=== PATIENT | female | born 1940 | race Caucasian/White ===

== ENCOUNTER 2018-12-28 08:55 | Inpatient (IN) | payer MEDICARE, OTHER ==
[~2018-12-28 08:55] MED LIST: Acetaminophen 325 MG Tab PO SCH; Acetaminophen/oxyCODONE 325-5 MG Tab PO PRN; Bisacodyl 5 MG Tab PO PRN; Cyclobenzaprine 10 MG Tab PO PRN; HYDROmorphone 0.5 MG/0.5 ML Syringe IVPUSH PRN; Lactated Ringers 1,000 ML IV SCH; Lidocaine 1%/Sod Bicarbonate in NS 8.4% 1 ML Syringe IDERM PRN; Magnesium Hydroxide 400 MG/5 ML Susp 30 ML Cup PO PRN; Naloxone 0.4 MG/ML SDV IVPUSH PRN; Ondansetron 4 MG/2 ML SDV IVPUSH PRN; Pregabalin 25 MG Cap PO SCH; Sennosides 8.6 MG Tab PO PRN; Sodium Chloride 0.9% 10 ML Syringe FLUSH PRN; oxyCODONE ER 10 MG TAB.ER PO SCH
[2018-12-28] MEDS ORDERED: Scopolamine 1.5 MG Transdermal Patch TRDERM SCH (09:15)
[2018-12-28] MEDS ORDERED: Lidocaine 1%/Sod Bicarbonate in NS 8.4% 1 ML Syringe IDERM PRN (09:39)
[2018-12-28] MEDS ORDERED: Midazolam 1 MG/ML 2 ML SDV ONE (09:41)
[2018-12-28] MEDS ORDERED: fentaNYL 100 MCG/2 ML SDV ONE (09:41)
[2018-12-28] MEDS ORDERED: Propofol 200 MG/20 ML SDV ONE (09:41)
[2018-12-28] MEDS ORDERED: Lidocaine 1% 4 ML ONE (09:41)
[2018-12-28] MEDS ORDERED: ceFAZolin 1 GM Vial ONE ×2 (09:42→09:55)
[2018-12-28] MEDS ORDERED: Ondansetron 4 MG/2 ML SDV ONE (09:42)
[2018-12-28] MEDS ORDERED: Dexamethasone 4 MG/ML 5 ML MDV ONE (09:42)
[2018-12-28] MEDS ORDERED: Acetaminophen 325 MG Tab PO SCH (09:45)
[2018-12-28] MEDS ORDERED: Pregabalin 25 MG Cap PO SCH (09:45)
[2018-12-28] MEDS ORDERED: Lactated Ringers 1,000 ML IV SCH (09:45)
[2018-12-28] MEDS ORDERED: oxyCODONE ER 10 MG TAB.ER PO SCH (09:45)
[2018-12-28] MEDS ORDERED: Iodine/Sodium Iodide 2% Tincture 30 ML Bottle ONE (09:55)
[2018-12-28] MEDS ORDERED: Vancomycin 1 GM SDV ONE (09:55)
[2018-12-28] MEDS ORDERED: Bupivacaine 0.25% 10 ML SDV ONE (09:56)
[2018-12-28] MEDS ORDERED: ePHEDrine/Normal Saline 25 MG/5 ML Syringe ONE (11:12)
[2018-12-28] MEDS ORDERED: fentaNYL 100 MCG/2 ML SDV IVPUSH PRN (11:20)
[2018-12-28] MEDS ORDERED: HYDROmorphone 0.5 MG/0.5 ML Syringe IVPUSH PRN (11:20)
[2018-12-28] MEDS ORDERED: Ondansetron 4 MG/2 ML SDV IVPUSH PRN (11:20)
--- NOTE | 2018-12-28 11:20 | PCM.PREANE ---
Preanesthetic Assessment - Anesthesia/Transfusion/Family Hx Anesthesia History: Prior Anesthesia Reaction Type of Anesthesia Reaction: Excessive Nausea/Vomiting Family History of Anesthesia Reaction: No Transfusion History: No Prior Transfusion(s) - Review of Systems General: No Symptoms Pulmonary: No Symptoms Cardiovascular: No Symptoms Gastrointestinal: No Symptoms Neurological: No Symptoms Other: Reports: Thyroid Problems (Hypothyroidism), Anxiety (Bipolar) - Physical Assessment NPO Status Date: 12/27/18 NPO Status Time: 21:30 Vital Signs: Last Vital Signs Temp 36.2 C 12/28/18 09:15 Pulse 61 12/28/18 09:15 Resp 16 12/28/18 09:15 BP 132/61 12/28/18 09:15 Pulse Ox 95 12/28/18 09:15 Height: 1.52 m Weight: 67.313 kg ASA Class: 2 Mental Status: Alert & Oriented x3 Airway Class: Mallampati = 2 Dentition: Reports: Normal Dentition (Chipped, crowding, none loose. ) Thyro-Mental Finger Breadths: 3 Mouth Opening Finger Breadths: 3 ROM/Head Extension: Full Lungs: Clear to Auscultation, Normal Respiratory Effort Cardiovascular: Regular Rate, Regular Rhythm - Lab Values: Laboratory Last Values MRSA (PCR) Negative 12/16/18 13:37 Blood Type A POSITIVE 12/28/18 09:40 Gel Antibody Screen Negative 12/28/18 09:40 - Allergies Allergies/Adverse Reactions: Allergies Allergy/AdvReac Type Severity Reaction Status Date / Time simvastatin AdvReac Cough Verified 12/28/18 09:59 tramadol AdvReac Nausea Verified 12/28/18 09:59 - Anesthesia Plan Pre-Op Medication Ordered: Anxiolytic - Acknowledgements Anesthesia Type Planned: Spinal Pt an Appropriate Candidate for the Planned Anesthesia: Yes Alternatives and Risks of Anesthesia Discussed w Pt/Guardian: Yes Pt/Guardian Understands and Agrees with Anesthesia Plan: Yes PreAnesthesia Questionnaire HEENT History: Reports: Glaucoma, Impaired Vision, Other (See Below) Other HEENT History: WEARS GLASSES Cardiovascular History: Reports: High Cholesterol Respiratory History: Reports: None Gastrointestinal History: Reports: GERD, Other (See Below) Other Gastrointestinal History: esophagitis Genitourinary History: Reports: None TABLEAU ANALYST History: Reports: None Musculoskeletal History: Reports: Osteoarthritis, Other (See Below) Other Musculoskeletal History: right rotator cuff tear with repair Neurological History: Reports: None Psychiatric History: Reports: Anxiety, Bipolar Endocrine/Metabolic History: Reports: Hypothyroidism, Osteopenia Hematologic History: Reports: None Immunologic History: Reports: None Oncologic (Cancer) History: Reports: None Dermatologic History: Reports: None - Past Surgical History Head Surgeries/Procedures: Reports: None HEENT Surgical History: Reports: Cataract Surgery, Tonsillectomy Cardiovascular Surgical History: Reports: None Respiratory Surgical History: Reports: None GI Surgical History: Reports: Colonoscopy, EGD Female Surgical History: Reports: None Male Surgical History: Reports: None Endocrine Surgical History: Reports: None Neurological Surgical History: Reports: None Oncologic Surgical History: Reports: None Dermatological Surgical History: Reports: None - SUBSTANCE USE Smoking Status *Q: Never Smoker Second Hand Smoke Exposure: No Recreational Drug Use History: No - HOME MEDS Home Medications: Home Meds Cholecalciferol (Vitamin D3) [Vitamin D3] 5,000 unit PO BEDTIME 12/25/18 [ History] Lutein/Zeaxanthin [Lutein-Zeaxanthin 25-5 mg Sfgl] 1 cap PO BEDTIME 12/25/18 [ History] RX: Dorzolamide/Timolol [Cosopt 2%-0.5% Ophth Soln] 1 drop EYEBOTH BID 12/25/18 [History] RX: Latanoprost 1 drop EYEBOTH BEDTIME 12/25/18 [History] RX: Levothyroxine 112 mcg PO DAILY 12/25/18 [History] RX: Multivitamin [Daily Vanessa] 1 tab PO BEDTIME 12/25/18 [History] RX: Omeprazole 40 mg PO BEDTIME 12/25/18 [History] Sertraline HCl [Zoloft] 100 mg PO BEDTIME 12/25/18 [History] Zolpidem [Ambien] 10 mg PO BEDTIME PRN 12/25/18 [History] - CURRENT (IN HOUSE) MEDS Current Meds: Current Medications Acetaminophen (Tylenol) 975 mg PO ONETIME [facility] Stop: 12/28/18 13:00 Last Admin: 12/28/18 09:50 Dose: 975 mg Hydrocodone Bitart/Acetaminophen ([place] 325-5 Mg) 1 - 2 tab PO Q4H PRN PRN Reason: Pain Aspirin (Ecotrin) 325 mg PO BID [facility] Bisacodyl (Dulcolax) 5 mg PO DAILY PRN PRN Reason: Constipation Morphine Sulfate 8 mg/Epinephrine HCl 0.3 mg/Cefuroxime Sodium 750 mg/Ketorolac Tromethamine 30 mg/Sodium Chloride 27.9 ml 0 mg .XX ONETIME ONE Stop: 12/28/18 12:01 Cyclobenzaprine HCl (Flexeril) 5 mg PO BID PRN PRN Reason: Spasms Docusate Sodium (Colace) 100 mg PO BID [facility] Famotidine (Pepcid) 20 mg PO Q12H [facility] Hydromorphone HCl (Dilaudid) 0.2 mg IVPUSH Q2H PRN PRN Reason: Pain (moderate 4-6) Cefazolin Sodium/Dextrose 2 gm (/ Premix) 50 mls @ 100 mls/hr IV Q8H [facility] Stop: 12/29/18 10:29 Lactated Ringer's (Ringers, Lactated) 1,000 mls @ 125 mls/hr IV ASDIRECTED [facility] Stop: 12/28/18 23:00 Last Admin: 12/28/18 09:43 Dose: 125 mls/hr Ketorolac Tromethamine (Toradol) 15 mg IVPUSH Q6H PRN PRN Reason: Pain Lidocaine/Sodium Bicarbonate (Buffered Lidocaine 1% In Ns 8.4%) 0.25 ml IDERM ONETIME PRN PRN Reason: Prior to IV Start Stop: 12/28/18 18:00 Last Admin: 12/28/18 09:43 Dose: 0.25 ml Magnesium Hydroxide (Milk Of Magnesia) 30 ml PO BID PRN PRN Reason: Constipation Naloxone HCl (Narcan) 0.1 mg IVPUSH Q5M PRN PRN Reason: Oversedation Ondansetron HCl (Zofran) 4 mg IVPUSH Q6H PRN PRN Reason: Nausea/Vomiting Oxycodone HCl (Oxycontin) 10 mg PO ONETIME [facility] Stop: 12/28/18 13:00 Last Admin: 12/28/18 09:50 Dose: 10 mg Oxycodone/Acetaminophen (Percocet 325-5 Mg) 1 - 2 tab PO Q4H PRN PRN Reason: Pain Pregabalin (Lyrica) 50 mg PO ONETIME [facility] Stop: 12/28/18 13:00 Last Admin: 12/28/18 09:50 Dose: 50 mg Scopolamine (Transderm-Scop) 1.5 mg TRDERM ONETIME [facility] Stop: 12/28/18 15:00 Last Admin: 12/28/18 09:40 Dose: 1.5 mg Senna (Senna) 8.6 mg PO BID PRN PRN Reason: Constipation Sodium Chloride (Saline Flush) 10 ml FLUSH ASDIRECTED PRN PRN Reason: Keep Vein Open Stop: 12/28/18 18:00 Discontinued Medications Acetaminophen (Tylenol) 975 mg PO ONETIME [facility] Stop: 12/28/18 12:00 Bupivacaine HCl (Sensorcaine-Mpf 0.25%) Confirm Administered Dose 30 ml .ROUTE .STK-MED ONE Stop: 12/28/18 09:57 Cefazolin Sodium (Ancef) Confirm Administered Dose 2 gm .ROUTE .STK-MED ONE Stop: 12/28/18 09:43 Cefazolin Sodium (Ancef) Confirm Administered Dose 2 gm .ROUTE .STK-MED ONE Stop: 12/28/18 09:56 Dexamethasone (Dexamethasone) Confirm Administered Dose 20 mg .ROUTE .STK-MED ONE Stop: 12/28/18 09:43 Ephedrine Sulfate (Ephedrine In Ns) Confirm Administered Dose 25 mg .ROUTE .STK- MED ONE Stop: 12/28/18 11:13 Fentanyl (Sublimaze) Confirm Administered Dose 100 mcg .ROUTE .STK-MED ONE Stop: 12/28/18 09:42 Lactated Ringer's (Ringers, Lactated) 1,000 mls @ 125 mls/hr IV ASDIRECTED [facility] Stop: 12/28/18 23:00 Lidocaine HCl (Xylocaine-Mpf 1%) Confirm Administered Dose 4 mls @ as directed .ROUTE .STK-MED ONE Stop: 12/28/18 09:42 Iodine (Iodine 2% Mild Tincture) Confirm Administered Dose 30 ml .ROUTE .STK- MED ONE Stop: 12/28/18 09:56 Lidocaine/Sodium Bicarbonate (Buffered Lidocaine 1% In Ns 8.4%) 0.25 ml IDERM ONETIME PRN PRN Reason: Prior to IV Start Stop: 12/28/18 18:00 Midazolam HCl (Versed 1 Mg/Ml) Confirm Administered Dose 2 mg .ROUTE .STK-MED ONE Stop: 12/28/18 09:42 Ondansetron HCl (Zofran) Confirm Administered Dose 4 mg .ROUTE .STK-MED ONE Stop: 12/28/18 09:43 Oxycodone HCl (Oxycontin) 10 mg PO ONETIME [facility] Stop: 12/28/18 12:00 Pregabalin (Lyrica) 25 mg PO TID [facility] Pregabalin (Lyrica) 50 mg PO ONETIME [facility] Stop: 12/28/18 12:00 Propofol (Diprivan 20 Ml) Confirm Administered Dose 600 mg .ROUTE .STK-MED ONE Stop: 12/28/18 09:42 Tranexamic Acid (Cyklokapron) Confirm Administered Dose 1,000 mg .ROUTE .STK- MED ONE Stop: 12/28/18 09:56 Vancomycin HCl (Vancomycin) Confirm Administered Dose 1 gm .ROUTE .STK-MED ONE Stop: 12/28/18 09:56
[2018-12-28] MEDS: Morphine 8 MG, EPINEPHrine 0.3 MG, Cefuroxime 750 MG, Ketorolac 30 MG, Sodium Chloride ... ONE ×10 (11:57→13:36)
[2018-12-28] MEDS ORDERED: Ketorolac 15 MG/ML SDV IVPUSH PRN (12:00)
[2018-12-28] MEDS ORDERED: Ketorolac 15 MG/ML SDV ONE (12:17)
[2018-12-28] MEDS ORDERED: ePHEDrine 50 MG/ML SDV IVPUSH PRN (12:35)
--- NOTE | 2018-12-28 12:35 | PCM.POSTAN ---
POST ANESTHESIA ASSESSMENT - MENTAL STATUS Mental Status: Somnolent - VITAL SIGNS Vital Signs: Last Vital Signs Temp 36.6 C 12/28/18 12:25 Pulse 60 12/28/18 12:25 Resp 8 L 12/28/18 12:25 BP 86/43 L 12/28/18 12:25 Pulse Ox 96 12/28/18 12:25 - RESPIRATORY Respiratory Status: Respiratory Rate WNL, Airway Patent, O2 Saturation Stable, Supplemental Oxygen - CARDIOVASCULAR CV Status: Pulse Rate WNL, Low Blood Pressure - GASTROINTESTINAL GI Status: No Symptoms - PAIN Pain Score: 0 - POST OP HYDRATION Hydration Status: Adequate & Stable
--- NOTE | 2018-12-28 13:09 | CR ---
Pelvis and right hip: AP view of the pelvis was obtained as well as a crosstable lateral view of the right hip. Comparison: No prior pelvis or hip exam. Right hip prosthesis is seen. Components are aligned. Joint space within the left hip is preserved. Sacroiliac joints are within normal limits. Bony structures are osteopenic. Soft tissue air is noted around the right hip compatible with recent surgery. Impression: 1. Recently placed right hip prosthesis. 2. AP pelvis and crosstable lateral right hip exam is otherwise unremarkable. Diagnostic code #2
--- NOTE | 2018-12-28 13:39 | PCM.CONS ---
<Saqib Bustillo - Last Filed: 12/29/18 10:57> H&P History of Present Illness - General Date of Service: 12/29/18 Admit Problem/Dx: Admission Diagnosis/Problem Admission Diagnosis/Problem Osteoarthritis of hip Source of Information: Patient, Old Records, Provider, RN, RN Notes Reviewed History Limitations: Reports: No Limitations - History of Present Illness Initial Comments - Free Text/Narative: Marci Chandra is a 78 yo female patient of Dr. Becerra who is post-operative day 1 of right JOSÉ ANTONIO. Hospital medicine was consulted for post-operative medical care of the following listed medical conditions. At this time she is resting comfortably in bed. Pain is controlled. She denies any chest pain, shortness of breath, palpitations, nausea, or vomiting. She carries a history of: anxiety, bipolar disorder, osteopenia, obesity, HLD, hypothyroidism, GERD. She was never a smoker. She is a full code. Her primary care provider is Wendi Wagoner PA-C. Right Hip Pain Score (Numeric/FACES): 6 - Related Data Allergies/Adverse Reactions: Allergies Allergy/AdvReac Type Severity Reaction Status Date / Time simvastatin AdvReac Cough Verified 12/28/18 15:27 tramadol AdvReac Nausea Verified 12/28/18 15:27 Home Medications: Home Meds Cholecalciferol (Vitamin D3) [Vitamin D3] 5,000 unit PO BEDTIME 12/25/18 [ History] Dorzolamide/Timolol [Cosopt 2%-0.5% Ophth Soln] 1 drop EYEBOTH BID 12/25/18 [ History] Latanoprost 1 drop EYEBOTH BEDTIME 12/25/18 [History] Levothyroxine 112 mcg PO DAILY 12/25/18 [History] Lutein/Zeaxanthin [Lutein-Zeaxanthin 25-5 mg Sfgl] 1 cap PO BEDTIME 12/25/18 [ History] Multivitamin [Daily Vanessa] 1 tab PO BEDTIME 12/25/18 [History] Omeprazole 40 mg PO BEDTIME 12/25/18 [History] Sertraline HCl [Zoloft] 100 mg PO BEDTIME 12/25/18 [History] Zolpidem [Ambien] 10 mg PO BEDTIME PRN 12/25/18 [History] Acetaminophen/HYDROcodone [[place] 325-5 MG] 1 - 2 tab PO Q4H PRN #60 tablet 12/29 [Rx] Aspirin [Ecotrin EC] 325 mg PO BID #70 tab.ec 12/29/18 [Rx] Bisacodyl [Dulcolax] 5 mg PO DAILY PRN #0 tablet 12/29/18 [Rx] Cyclobenzaprine [Flexeril] 5 mg PO BID PRN #15 tablet 12/29/18 [Rx] Docusate Sodium [Colace] 100 mg PO BID cap 12/29/18 [Rx] Famotidine [Pepcid] 20 mg PO Q12H tablet 12/29/18 [Rx] Magnesium Hydroxide [Milk of Magnesia] 30 ml PO BID PRN cup 12/29/18 [Rx] Sennosides [Senna] 8.6 mg PO BID PRN tablet 12/29/18 [Rx] Past Medical History HEENT History: Reports: Glaucoma, Impaired Vision, Other (See Below) Other HEENT History: WEARS GLASSES Cardiovascular History: Reports: High Cholesterol Respiratory History: Reports: None Gastrointestinal History: Reports: GERD, Other (See Below) Other Gastrointestinal History: esophagitis Genitourinary History: Reports: None INVENTORY CONTROL ANALYST History: Reports: None Musculoskeletal History: Reports: Osteoarthritis, Other (See Below) Other Musculoskeletal History: right rotator cuff tear with repair Neurological History: Reports: None Psychiatric History: Reports: Anxiety, Bipolar Endocrine/Metabolic History: Reports: Hypothyroidism, Osteopenia Hematologic History: Reports: None Immunologic History: Reports: None Oncologic (Cancer) History: Reports: None Dermatologic History: Reports: None - Past Surgical History Head Surgeries/Procedures: Reports: None HEENT Surgical History: Reports: Cataract Surgery, Tonsillectomy Cardiovascular Surgical History: Reports: None Respiratory Surgical History: Reports: None GI Surgical History: Reports: Colonoscopy, EGD Female Surgical History: Reports: None Male Surgical History: Reports: None Endocrine Surgical History: Reports: None Neurological Surgical History: Reports: None Oncologic Surgical History: Reports: None Dermatological Surgical History: Reports: None Social & Family History - Tobacco Use Smoking Status *Q: Never Smoker Second Hand Smoke Exposure: No - Caffeine Use Caffeine Use: Reports: Coffee, Soda - Recreational Drug Use Recreational Drug Use: No H&P Review of Systems - Review of Systems: Review Of Systems: See Below General: Reports: No Symptoms. Denies: Fever, Chills, Weakness HEENT: Reports: No Symptoms. Denies: Headaches, Sore Throat Pulmonary: Reports: No Symptoms. Denies: Shortness of Breath, Wheezing, Pleuritic Chest Pain, Cough, Sputum Cardiovascular: Reports: No Symptoms. Denies: Chest Pain, Palpitations, Dyspnea on Exertion Gastrointestinal: Reports: No Symptoms. Denies: Abdominal Pain, Constipation, Diarrhea, Nausea, Vomiting Genitourinary: Reports: No Symptoms. Denies: Pain Musculoskeletal: Reports: Leg Pain (right) Skin: Reports: No Symptoms. Denies: Cyanosis Psychiatric: Reports: No Symptoms. Denies: Confusion Neurological: Reports: No Symptoms Hematologic/Lymphatic: Reports: No Symptoms Immunologic: Reports: No Symptoms Exam - Exam Exam: See Below - Vital Signs Vital Signs: Last Vital Signs Temp 97.9 F 12/28/18 13:00 Pulse 52 L 12/28/18 13:07 Resp 15 12/28/18 13:07 BP 111/53 L 12/28/18 13:07 Pulse Ox 100 12/28/18 13:07 Weight: 67.313 kg - Exam Quality Assessment: DVT Prophylaxis General: Alert, Oriented, Cooperative. No: Mild Distress HEENT: Conjunctiva Clear, EACs Clear, EOMI, Hearing Intact, Mucosa Moist & [place] , Nares Patent, Posterior Pharynx Clear, PERRLA Neck: Supple, Trachea Midline Lungs: Clear to Auscultation, Normal Respiratory Effort Cardiovascular: Regular Rate, Regular Rhythm GI/Abdominal Exam: Normal Bowel Sounds, Soft, Non-Tender, No Distention, No Abnormal Bruit (Female) Exam: Deferred Rectal (Female) Exam: Deferred Back Exam: Normal Inspection, Full Range of Motion Extremities: No Pedal Edema, Normal Capillary Refill, Leg Pain, Limited Range of Motion, Other (Bandage in place on right leg. Bandage is dry and intact. Cooling pack in place. ) Peripheral Pulses: 2+: Radial (L), Radial (R), Dorsalis Pedis (L), Dorsalis Pedis (R) Skin: Warm, Dry, Intact Neurological: Cranial Nerves Intact (grossly ) Neuro Extensive - Mental Status: Alert, Oriented x3, Normal Mood/Affect - Patient Data Lab Results Last 24 hrs: Laboratory Results - last 24 hr 12/28/18 Range/Units 09:40 Blood Type A POSITIVE Gel Antibody Screen Negative Result Diagrams: 12/29/18 05:24 12/29/18 05:24 Consult PN Assessment/Plan POD#: 1 (1) S/P total knee arthroplasty SNOMED Code(s): 2730088301022, 686799862, 4633143973882 Code(s): Z96.659 - PRESENCE OF UNSPECIFIED ARTIFICIAL KNEE JOINT Priority: High Qualifiers: Laterality: right Qualified Code(s): Z96.651 - Presence of right artificial knee joint (2) Osteoarthritis SNOMED Code(s): 462703991 Code(s): M19.90 - UNSPECIFIED OSTEOARTHRITIS, UNSPECIFIED SITE Priority: High Qualifiers: Osteoarthritis location: knee Osteoarthritis type: primary Laterality: right Qualified Code(s): M17.11 - Unilateral primary osteoarthritis, right knee (3) Anxiety SNOMED Code(s): 54314922 Code(s): F41.9 - ANXIETY DISORDER, UNSPECIFIED Priority: Low (4) Bipolar disorder SNOMED Code(s): 67296841 Code(s): F31.9 - BIPOLAR DISORDER, UNSPECIFIED Priority: Medium Qualifiers: Active/Remission status: remission status unspecified Qualified Code(s): F31.9 - Bipolar disorder, unspecified (5) HLD (hyperlipidemia) SNOMED Code(s): 82747775 Code(s): E78.5 - HYPERLIPIDEMIA, UNSPECIFIED (6) Hypothyroid SNOMED Code(s): 19476607 Code(s): E03.9 - HYPOTHYROIDISM, UNSPECIFIED Priority: Low Qualifiers: Hypothyroidism type: unspecified Qualified Code(s): E03.9 - Hypothyroidism , unspecified (7) GERD (gastroesophageal reflux disease) SNOMED Code(s): 811710221 Code(s): K21.9 - GASTRO-ESOPHAGEAL REFLUX DISEASE WITHOUT ESOPHAGITIS Priority: Low Qualifiers: Esophagitis presence: esophagitis presence not specified Qualified Code(s) : K21.9 - Gastro-esophageal reflux disease without esophagitis Problem List Initiated/Reviewed/Updated: Yes Plan: I/P: Acute: S/P right total hip arthroplasty - post-operative day 1 -DVT prophylaxis and pain management per primary care team -PT/OT -IS/RT -Monitor oxygen saturation -Titrate oxygen as needed -Home medications reviewed -Vital signs stable -Monitor labs -Pre-operative Hgb was 13.5; Now 11.5 -Pre-operative GFR was 69; Now >60 -Pre-operative TSH was 0.235 -Pre-operative BUN was 21; Now 19 Osteoarthritis of right hip -Pain management per primary care team Chronic: anxiety bipolar disorder osteopenia obesity HLD hypothyroidism GERD Plan: CM for discharge planning GI prophylaxis Home medications as indicated Other orders as listed above Routine AM labs She is a full code. Her PCP is Wendi Wagoner PA-C From a hospitalist standpoint Marci is doing well. She has been up ambulating and working with therapies. Pain is controlled. She is off oxygen and has urinated. She has been eating well. Her labs and vital signs remained stable. She is clear for discharge pending PT/OT and primary team approval. Thank you for allowing us to participate in the care of this patient!! Requesting Provider: Dr. Becerra Date Consult Requested: 12/28/18 Patient History Reviewed: Yes Admission H&P Reviewed: Yes <Noreen Dorado - Last Filed: 12/29/18 21:21> H&P History of Present Illness - General Admit Problem/Dx: Admission Diagnosis/Problem Admission Diagnosis/Problem Osteoarthritis of hip Exam - Vital Signs Vital Signs: Last Vital Signs Temp 36.7 C 12/29/18 12:13 Pulse 57 L 12/29/18 12:13 Resp 18 12/29/18 12:13 BP 106/49 L 12/29/18 12:13 Pulse Ox 94 L 12/29/18 12:13 - Patient Data Lab Results Last 24 hrs: Laboratory Results - last 24 hr 12/29/18 12/29/18 Range/Units 05:24 05:24 WBC 11.24 H (3.98-10.04) K/mm3 RBC 3.84 L (3.98-5.22) M/mm3 Hgb 11.5 (11.2-15.7) gm/dl Hct 35.1 (34.1-44.9) % MCV 91.4 (79.4-94.8) fl MCH 29.9 (25.6-32.2) pg MCHC 32.8 (32.2-35.5) g/dl RDW Std Deviation 43.4 (36.4-46.3) fL Plt Count 222 (182-369) K/mm3 MPV 10.0 (9.4-12.3) fl Sodium 141 (136-145) mEq/L Potassium 4.5 (3.5-5.1) mEq/L Chloride 105 (98-107) mEq/L Carbon Dioxide 27 (21-32) mEq/L Anion Gap 13.5 (5-15) BUN 19 H (7-18) mg/dL Creatinine 0.9 (0.55-1.02) mg/dL Est Cr Clr Drug Dosing 36.41 mL/min Estimated GFR (MDRD) > 60 (>60) mL/min BUN/Creatinine Ratio 21.1 H (14-18) Glucose 124 H (83-115) mg/dL Calcium 9.0 (8.5-10.1) mg/dL Total Bilirubin 0.4 (0.2-1.0) mg/dL AST 55 H (15-37) U/L ALT 30 (14-59) U/L Alkaline Phosphatase 74 (46-116) U/L Total Protein 6.9 (6.4-8.2) g/dl Albumin 3.2 L (3.4-5.0) g/dl Globulin 3.7 gm/dL Albumin/Globulin Ratio 0.9 L (1-2) Result Diagrams: 12/29/18 05:24 12/29/18 05:24 Consult PN Assessment/Plan Plan: Case was discussed with Saqib Bustillo and agree with his assessment and plan set forth for this patient.
[2018-12-28] MEDS: ceFAZolin 2 GM in Premix Bag 1 BAG IV SCH (17:26)
[2018-12-28] MEDS: Acetaminophen/HYDROcodone 325-5 MG Tab PO PRN (18:21)
[2018-12-28] MEDS: Famotidine 20 MG Tab PO SCH (20:09)
[2018-12-28] MEDS: Docusate Sodium 100 MG Cap PO SCH (20:09)
[2018-12-28] MEDS: TIMOLOL EYEBOTH SCH (20:09)
[2018-12-28] MEDS: DORZOLAMIDE EYEBOTH SCH (20:09)
[2018-12-28] MEDS ORDERED: Sertraline 50 MG Tab PO SCH (21:00)
[2018-12-28] MEDS ORDERED: Cholecalciferol (Vitamin D3) 5,000 UNIT Tab PO SCH (21:00)
[2018-12-28] MEDS ORDERED: LATANOPROST 0.005% EYEBOTH SCH (21:00)
[2018-12-28] MEDS ORDERED: Multivitamins with Minerals/Folic Acid/Lutein/Zeaxanth Tab PO SCH (21:00)
[2018-12-28] MEDS ORDERED: Multivitamins,Therapeutic Tab PO SCH (21:00)
[2018-12-29] MEDS: Acetaminophen/HYDROcodone 325-5 MG Tab PO PRN ×3 (00:03→13:44)
[2018-12-29] MEDS: ceFAZolin 2 GM in Premix Bag 1 BAG IV SCH ×2 (02:58→10:05)
[2018-12-29] MEDS ORDERED: Levothyroxine 112 MCG Tab PO SCH (06:00)
--- NOTE | 2018-12-29 07:34 | PCM.SURGPN ---
- General Info Date of Service: 12/29/18 POD#: 1 Functional Status: Reports: Pain Controlled, Tolerating Diet, Ambulating, Urinating, Incentive Spirometry, Other (The pt states she is doing well. Nursing reports pt has been doing well.) - Patient Data Vitals - Most Recent: Last Vital Signs Temp 97.7 F 12/29/18 03:01 Pulse 54 L 12/29/18 03:01 Resp 20 12/29/18 03:01 BP 108/49 L 12/29/18 03:01 Pulse Ox 90 L 12/29/18 03:15 Weight - Most Recent: 148 lb 6.4 oz I&O - Last 24 Hours: Intake & Output 12/28/18 12/29/18 12/29/18 22:59 06:59 14:59 Intake Total 960 450 Output Total 550 Balance 960 -100 Lab Results Last 24 Hrs: Laboratory Results - last 24 hr 12/28/18 12/29/18 12/29/18 Range/Units 09:40 05:24 05:24 WBC 11.24 H (3.98-10.04) K/mm3 RBC 3.84 L (3.98-5.22) M/mm3 Hgb 11.5 (11.2-15.7) gm/dl Hct 35.1 (34.1-44.9) % MCV 91.4 (79.4-94.8) fl MCH 29.9 (25.6-32.2) pg MCHC 32.8 (32.2-35.5) g/dl RDW Std Deviation 43.4 (36.4-46.3) fL Plt Count 222 (182-369) K/mm3 MPV 10.0 (9.4-12.3) fl Sodium 141 (136-145) mEq/L Potassium 4.5 (3.5-5.1) mEq/L Chloride 105 (98-107) mEq/L Carbon Dioxide 27 (21-32) mEq/L Anion Gap 13.5 (5-15) BUN 19 H (7-18) mg/dL Creatinine 0.9 (0.55-1.02) mg/dL Est Cr Clr Drug Dosing 36.41 mL/min Estimated GFR (MDRD) > 60 (>60) mL/min BUN/Creatinine Ratio 21.1 H (14-18) Glucose 124 H (83-115) mg/dL Calcium 9.0 (8.5-10.1) mg/dL Total Bilirubin 0.4 (0.2-1.0) mg/dL AST 55 H (15-37) U/L ALT 30 (14-59) U/L Alkaline Phosphatase 74 (46-116) U/L Total Protein 6.9 (6.4-8.2) g/dl Albumin 3.2 L (3.4-5.0) g/dl Globulin 3.7 gm/dL Albumin/Globulin Ratio 0.9 L (1-2) Blood Type A POSITIVE Gel Antibody Screen Negative Med Orders - Current: Current Medications Hydrocodone Bitart/Acetaminophen (Curlew 325-5 Mg) 1 - 2 tab PO Q4H PRN PRN Reason: Pain Last Admin: 12/29/18 05:56 Dose: 2 tab Aspirin (Ecotrin) 325 mg PO BID [facility] Bisacodyl (Dulcolax) 5 mg PO DAILY PRN PRN Reason: Constipation Cholecalciferol (Vitamin D3) 5,000 unit PO BEDTIME [facility] Last Admin: 12/28/18 20:09 Dose: 5,000 unit Cyclobenzaprine HCl (Flexeril) 5 mg PO BID PRN PRN Reason: Spasms Last Admin: 12/28/18 22:11 Dose: 5 mg Docusate Sodium (Colace) 100 mg PO BID [facility] Last Admin: 12/28/18 20:09 Dose: 100 mg Famotidine (Pepcid) 20 mg PO Q12H [facility] Last Admin: 12/28/18 20:09 Dose: 20 mg Hydromorphone HCl (Dilaudid) 0.2 mg IVPUSH Q2H PRN PRN Reason: Pain (moderate 4-6) Last Admin: 12/28/18 22:01 Dose: 0.2 mg Cefazolin Sodium/Dextrose 2 gm (/ Premix) 50 mls @ 100 mls/hr IV Q8H [facility] Stop: 12/29/18 10:29 Last Admin: 12/29/18 02:58 Dose: 100 mls/hr Ketorolac Tromethamine (Toradol) 15 mg IVPUSH Q6H PRN PRN Reason: Pain Last Admin: 12/28/18 18:21 Dose: 15 mg Levothyroxine Sodium (Levothyroxine) 112 mcg PO ACBREAKFAST [facility] Last Admin: 12/29/18 05:56 Dose: 112 mcg Magnesium Hydroxide (Milk Of Magnesia) 30 ml PO BID PRN PRN Reason: Constipation Miscellaneous Information (Remove Patch) 1 ea TRDERM ONETIME ONE Stop: 12/31/18 10:01 Multivitamins (Thera) 1 each PO BEDTIME [facility] Last Admin: 12/28/18 20:09 Dose: 1 each Naloxone HCl (Narcan) 0.1 mg IVPUSH Q5M PRN PRN Reason: Oversedation Ondansetron HCl (Zofran) 4 mg IVPUSH Q6H PRN PRN Reason: Nausea/Vomiting Dorzolamide/Timolol 2%-0.5% Ophth Soln * *Ptom 0 each EYEBOTH BID [facility] Last Admin: 12/28/18 20:09 Dose: 1 each Latanoprost 0.005% * (*Ptom) 0 each EYEBOTH BEDTIME [facility] Last Admin: 12/28/18 20:10 Dose: 1 each Senna (Senna) 8.6 mg PO BID PRN PRN Reason: Constipation Sertraline HCl (Zoloft) 100 mg PO BEDTIME [facility] Last Admin: 12/28/18 20:09 Dose: 100 mg Vit A/Vit C/Vit E/Selen/Cu/Zn/Lutei (Icaps Mv) 1 tab PO BEDTIME [facility] Last Admin: 12/28/18 20:09 Dose: 1 tab Discontinued Medications Acetaminophen (Tylenol) 975 mg PO ONETIME [facility] Stop: 12/28/18 12:00 Acetaminophen (Tylenol) 975 mg PO ONETIME [facility] Stop: 12/28/18 13:00 Last Admin: 12/28/18 09:50 Dose: 975 mg Bupivacaine HCl (Sensorcaine-Mpf 0.25%) Confirm Administered Dose 30 ml .ROUTE .STK-MED ONE Stop: 12/28/18 09:57 Last Admin: 12/28/18 11:56 Dose: 30 ml Cefazolin Sodium (Ancef) Confirm Administered Dose 2 gm .ROUTE .STK-MED ONE Stop: 12/28/18 09:43 Last Admin: 12/28/18 11:52 Dose: 2 gm Cefazolin Sodium (Ancef) Confirm Administered Dose 2 gm .ROUTE .STK-MED ONE Stop: 12/28/18 09:56 Morphine Sulfate 8 mg/Epinephrine HCl 0.3 mg/Cefuroxime Sodium 750 mg/Ketorolac Tromethamine 30 mg/Sodium Chloride 27.9 ml 0 mg .XX ONETIME ONE Stop: 12/28/18 12:01 Last Admin: 12/28/18 13:36 Dose: Not Given Dexamethasone (Dexamethasone) Confirm Administered Dose 20 mg .ROUTE .STK-MED ONE Stop: 12/28/18 09:43 Ephedrine Sulfate (Ephedrine In Ns) Confirm Administered Dose 25 mg .ROUTE .STK- MED ONE Stop: 12/28/18 11:13 Ephedrine Sulfate (Ephedrine Sulfate) 5 mg IVPUSH ASDIRECTED PRN PRN Reason: Hypotension Stop: 12/28/18 15:00 Fentanyl (Sublimaze) Confirm Administered Dose 100 mcg .ROUTE .STK-MED ONE Stop: 12/28/18 09:42 Fentanyl (Sublimaze) 50 mcg IVPUSH Q5M PRN PRN Reason: Pain Stop: 12/28/18 13:00 Hydromorphone HCl (Dilaudid) 0.5 mg IVPUSH Q10M PRN PRN Reason: Pain (severe 7-10) Stop: 12/28/18 13:00 Lactated Ringer's (Ringers, Lactated) 1,000 mls @ 125 mls/hr IV ASDIRECTED [facility] Stop: 12/28/18 23:00 Lactated Ringer's (Ringers, Lactated) 1,000 mls @ 125 mls/hr IV ASDIRECTED [facility] Stop: 12/28/18 23:00 Last Admin: 12/28/18 09:43 Dose: 125 mls/hr Lidocaine HCl (Xylocaine-Mpf 1%) Confirm Administered Dose 4 mls @ as directed .ROUTE .STK-MED ONE Stop: 12/28/18 09:42 Iodine (Iodine 2% Mild Tincture) Confirm Administered Dose 30 ml .ROUTE .STK- MED ONE Stop: 12/28/18 09:56 Last Admin: 12/28/18 11:50 Dose: 18 ml Ketorolac Tromethamine (Toradol) Confirm Administered Dose 15 mg .ROUTE .STK- MED ONE Stop: 12/28/18 12:18 Lidocaine/Sodium Bicarbonate (Buffered Lidocaine 1% In Ns 8.4%) 0.25 ml IDERM ONETIME PRN PRN Reason: Prior to IV Start Stop: 12/28/18 18:00 Lidocaine/Sodium Bicarbonate (Buffered Lidocaine 1% In Ns 8.4%) 0.25 ml IDERM ONETIME PRN PRN Reason: Prior to IV Start Stop: 12/28/18 18:00 Last Admin: 12/28/18 09:43 Dose: 0.25 ml Midazolam HCl (Versed 1 Mg/Ml) Confirm Administered Dose 2 mg .ROUTE .STK-MED ONE Stop: 12/28/18 09:42 Ondansetron HCl (Zofran) Confirm Administered Dose 4 mg .ROUTE .STK-MED ONE Stop: 12/28/18 09:43 Ondansetron HCl (Zofran) 4 mg IVPUSH ONETIME PRN PRN Reason: Nausea/Vomiting Stop: 12/28/18 16:00 Oxycodone HCl (Oxycontin) 10 mg PO ONETIME [facility] Stop: 12/28/18 12:00 Oxycodone HCl (Oxycontin) 10 mg PO ONETIME [facility] Stop: 12/28/18 13:00 Last Admin: 12/28/18 09:50 Dose: 10 mg Oxycodone/Acetaminophen (Percocet 325-5 Mg) 1 - 2 tab PO Q4H PRN PRN Reason: Pain Pregabalin (Lyrica) 25 mg PO TID [facility] Pregabalin (Lyrica) 50 mg PO ONETIME [facility] Stop: 12/28/18 12:00 Pregabalin (Lyrica) 50 mg PO ONETIME [facility] Stop: 12/28/18 13:00 Last Admin: 12/28/18 09:50 Dose: 50 mg Propofol (Diprivan 20 Ml) Confirm Administered Dose 600 mg .ROUTE .STK-MED ONE Stop: 12/28/18 09:42 Scopolamine (Transderm-Scop) 1.5 mg TRDERM ONETIME [facility] Stop: 12/28/18 15:00 Last Admin: 12/28/18 09:40 Dose: 1.5 mg Sodium Chloride (Saline Flush) 10 ml FLUSH ASDIRECTED PRN PRN Reason: Keep Vein Open Stop: 12/28/18 18:00 Tranexamic Acid (Cyklokapron) Confirm Administered Dose 1,000 mg .ROUTE .STK- MED ONE Stop: 12/28/18 09:56 Last Admin: 12/28/18 11:58 Dose: 1,000 mg Vancomycin HCl (Vancomycin) Confirm Administered Dose 1 gm .ROUTE .STK-MED ONE Stop: 12/28/18 09:56 Last Admin: 12/28/18 11:57 Dose: 1 gm - Exam Wound/Incisions: Dressing Dry and Intact General: Alert, Cooperative, No Acute Distress Lungs: Normal Respiratory Effort Extremities: Other (NVS intact for BLE. Tio's negative for BLE. Right thigh soft.) - Problem List Review Problem List Initiated/Reviewed/Updated: Yes - My Orders Last 24 Hours: Active Orders 24 hr Category Date Time Status Patient Status [ADT] Routine ADT 12/28/18 06:34 Active Ambulate [RC] TIDMEALS Care 12/28/18 06:34 Active May Shower [RC] DAILY Care 12/28/18 06:34 Active Notify Provider Consults [RC] ASDIRECTED Care 12/28/18 06:37 Active Oxygen Therapy [RC] PRN Care 12/28/18 06:34 Active Ready for Discharge [RC] PER UNIT ROUTINE Care 12/29/18 07:32 Ordered Up to Chair [RC] TIDMEALS Care 12/28/18 06:34 Active Vital Signs [RC] Q4HR Care 12/28/18 06:34 Active Consult to Physician [CONS] Routine Cons 12/28/18 06:34 Ordered Regular Diet [DIET] Diet 12/28/18 Lunch Active PATIENT RETYPE [BBK] Routine Lab 12/28/18 10:48 Ordered Acetaminophen/HYDROcodone [Curlew 325-5 MG] Med 12/28/18 06:34 Active 1 - 2 tab PO Q4H PRN Aspirin [Ecotrin] Med 12/29/18 09:00 Active 325 mg PO BID Bisacodyl [Dulcolax] Med 12/28/18 06:34 Active 5 mg PO DAILY PRN Cholecalciferol (Vitamin D3) [Vitamin D3] Med 12/28/18 21:00 Active 5,000 unit PO BEDTIME Docusate Sodium [Colace] Med 12/28/18 21:00 Active 100 mg PO BID Famotidine [Pepcid] Med 12/28/18 21:00 Active 20 mg PO Q12H HYDROmorphone [Dilaudid] Med 12/28/18 06:34 Active 0.2 mg IVPUSH Q2H PRN Ketorolac [Toradol] Med 12/28/18 12:00 Active 15 mg IVPUSH Q6H PRN Levothyroxine Med 12/29/18 06:00 Active 112 mcg PO ACBREAKFAST Magnesium Hydroxide [Milk of Magnesia] Med 12/28/18 06:34 Active 30 ml PO BID PRN Multivitamins,Therapeutic [Thera] Med 12/28/18 21:00 Active 1 each PO BEDTIME Multivitamins/Min/FA/Lut/Zeax [ICaps MV] Med 12/28/18 21:00 Active 1 tab PO BEDTIME Naloxone [Narcan] Med 12/28/18 06:34 Active 0.1 mg IVPUSH Q5M PRN Ondansetron [Zofran] Med 12/28/18 06:34 Active 4 mg IVPUSH Q6H PRN Patient's Own Medication [Ptom] Med 12/28/18 21:00 Active 0 each EYEBOTH BEDTIME Patient's Own Medication [Ptom] Med 12/28/18 21:00 Active 0 each EYEBOTH BID Remove Patch Med 12/31/18 10:00 Once 1 ea TRDERM ONETIME ONE Sennosides [Senna] Med 12/28/18 06:34 Active 8.6 mg PO BID PRN Sertraline [Zoloft] Med 12/28/18 21:00 Active 100 mg PO BEDTIME ceFAZolin [Ancef] 2 gm Med 12/28/18 18:00 Active Premix Bag 1 bag IV Q8H Antiembolic Hose [OM.PC] Per Unit Routine Oth 12/28/18 06:35 Ordered Ice Therapy [OM.PC] Per Unit Routine Oth 12/28/18 06:34 Ordered Resuscitation Status Routine Resus Stat 12/28/18 06:34 Ordered Medication Orders Hydrocodone Bitart/Acetaminophen (Curlew 325-5 Mg) 1 - 2 tab PO Q4H PRN PRN Reason: Pain Last Admin: 12/29/18 05:56 Dose: 2 tab Admin: 12/29/18 00:03 Dose: 2 tab Admin: 12/28/18 18:21 Dose: 1 tab Aspirin (Ecotrin) 325 mg PO BID [facility] Bisacodyl (Dulcolax) 5 mg PO DAILY PRN PRN Reason: Constipation Cholecalciferol (Vitamin D3) 5,000 unit PO BEDTIME [facility] Last Admin: 12/28/18 20:09 Dose: 5,000 unit Cyclobenzaprine HCl (Flexeril) 5 mg PO BID PRN PRN Reason: Spasms Last Admin: 12/28/18 22:11 Dose: 5 mg Docusate Sodium (Colace) 100 mg PO BID [facility] Last Admin: 12/28/18 20:09 Dose: 100 mg Famotidine (Pepcid) 20 mg PO Q12H [facility] Last Admin: 12/28/18 20:09 Dose: 20 mg Hydromorphone HCl (Dilaudid) 0.2 mg IVPUSH Q2H PRN PRN Reason: Pain (moderate 4-6) Last Admin: 12/28/18 22:01 Dose: 0.2 mg Cefazolin Sodium/Dextrose 2 gm (/ Premix) 50 mls @ 100 mls/hr IV Q8H [facility] Stop: 12/29/18 10:29 Last Admin: 12/29/18 02:58 Dose: 100 mls/hr Infusion: 12/28/18 17:56 Dose: 100 mls/hr Admin: 12/28/18 17:26 Dose: 100 mls/hr Ketorolac Tromethamine (Toradol) 15 mg IVPUSH Q6H PRN PRN Reason: Pain Last Admin: 12/28/18 18:21 Dose: 15 mg Levothyroxine Sodium (Levothyroxine) 112 mcg PO ACBREAKFAST [facility] Last Admin: 12/29/18 05:56 Dose: 112 mcg Magnesium Hydroxide (Milk Of Magnesia) 30 ml PO BID PRN PRN Reason: Constipation Miscellaneous Information (Remove Patch) 1 ea TRDERM ONETIME ONE Stop: 12/31/18 10:01 Multivitamins (Thera) 1 each PO BEDTIME [facility] Last Admin: 12/28/18 20:09 Dose: 1 each Naloxone HCl (Narcan) 0.1 mg IVPUSH Q5M PRN PRN Reason: Oversedation Ondansetron HCl (Zofran) 4 mg IVPUSH Q6H PRN PRN Reason: Nausea/Vomiting Dorzolamide/Timolol 2%-0.5% Ophth Soln * *Ptom 0 each EYEBOTH BID [facility] Last Admin: 12/28/18 20:09 Dose: 1 each Latanoprost 0.005% * (*Ptom) 0 each EYEBOTH BEDTIME [facility] Last Admin: 12/28/18 20:10 Dose: 1 each Senna (Senna) 8.6 mg PO BID PRN PRN Reason: Constipation Sertraline HCl (Zoloft) 100 mg PO BEDTIME [facility] Last Admin: 12/28/18 20:09 Dose: 100 mg Vit A/Vit C/Vit E/Selen/Cu/Zn/Lutei (Icaps Mv) 1 tab PO BEDTIME [facility] Last Admin: 12/28/18 20:09 Dose: 1 tab - Assessment Assessment (Free Text/Narrative):: POD#1 - s/p right JOSÉ ANTONIO - Plan Plan (Free Text/Narrative):: 1. Hgb 11.5. 2. 325mg ASA PO BID, frequent mobility, TEDs. 3. Discharge to home today. 4. Outpatient therapy. The pt's case was discussed with Dr. Becerra.
[2018-12-29] MEDS ORDERED: Aspirin 325 MG Tab.EC PO SCH (09:00)
[2018-12-29] MEDS: Docusate Sodium 100 MG Cap PO SCH (10:06)
[2018-12-29] MEDS: DORZOLAMIDE EYEBOTH SCH (10:06)
[2018-12-29] MEDS: TIMOLOL EYEBOTH SCH (10:06)
[2018-12-29] MEDS: Famotidine 20 MG Tab PO SCH (10:47)
--- NOTE | 2018-12-29 11:40 | PCM48HPAN ---
Post Anesthesia Note - EVALUATION WITHIN 48HRS OF ANESTHETIC Vital Signs in Normal Range: Yes Patient Participated in Evaluation: Yes Respiratory Function Stable: Yes Airway Patent: Yes Cardiovascular Function Stable: Yes Hydration Status Stable: Yes Pain Control Satisfactory: Yes Nausea and Vomiting Control Satisfactory: Yes Mental Status Recovered: Yes Vital Signs: Last Vital Signs Temp 36.8 C 12/29/18 08:33 Pulse 58 L 12/29/18 08:33 Resp 18 12/29/18 08:33 BP 130/57 L 12/29/18 08:33 Pulse Ox 96 12/29/18 08:33
[2018-12-29] MEDS ORDERED: Famotidine 20 MG Tab PO SCH (21:00)
--- NOTE | 2018-12-31 15:56 | PCM.DCSUM1 ---
Discharge Summary - Hospital Course Brief History: Marci is a 78 yo female who underwent right JOSÉ ANTONIO with Dr. Becerra on 12-28-2018. The procedure was completed under spinal anesthesia with sedation. The pt tolerated the procedure well and was admitted to the Medical-Surgical Unit. Medical management was provided by the Hospitalist service. The pt's Hospital course was uneventful. The pt's Hgb on POD#1 was 11.5. On POD#1, 325mg ASA BID was initiated for VTE prophylaxis. SCDs and TEDs were also ordered. A Mepilex dressing was placed at the incision site at the time of surgery and remained clean and dry. The pt participated in P.T. and O.T. and progressed well. She followed the JOSÉ ANTONIO precautions. The pt was allowed to WBAT. On POD#1, the pt was deemed appropriate to discharge to home with her family. - Discharge Data Discharge Date: 12/29/18 Discharge Disposition: Home, Self-Care 01 Condition: Good - Patient Summary/Data Consults: Consultations 12/28/18 06:31 PT Evaluation and Treatment [CONS] Routine 12/28/18 06:32 OT Evaluation and Treatment [CONS] Routine 12/28/18 06:34 Consult to Physician [CONS] Routine - Patient Instructions Diet: Usual Diet as Tolerated Activity: Apply Ice, As Tolerated, Elevate Extremity, Full Weight Bearing Activity, Other: Follow the total hip precautions. Driving: Do Not Drive Showering/Bathing: May Shower Wound/Incision Care: Keep Operative Site/Wound Site Clean and Dry, Do NOT Change Dressing Notify Provider of: Fever, Increased Pain, Swelling and Redness, Drainage, Nausea and/or Vomiting Other/Special Instructions: Please get up and moving around EVERY HOUR while awake. This helps to prevent blood clots. Please use your walker and have help with mobility as needed. Take a short walk in your home every hour while awake. Please take 325mg Aspirin TWICE daily. The aspirin is being used for blood clot prevention and not for pain management so please do not miss a dose of the medication. You could use a medication like Pepcid or Tagamet and a medication like Prilosec or Nexium to protect your stomach while you are using the aspirin. At home, please complete the exercises that you learned during the Hospital stay. Schedule for physical therapy. Follow the total hip precautions. Use the pain medication as needed. The medication may cause drowsiness and constipation. Contact your primary care provider for instructions if you are constipated. You may use a stool softener like docusate sodium or Colace 100mg twice daily and/or a laxative like Miralax daily for constipation. Increase your water and fiber intake while you are using the pain medication. Discontinue use of the pain medication as soon as able. Please do not use other medications that may cause drowsiness (other pain medications, anxiety pills, cold medications, sleeping pills, etc) while using the prescription pain medication. Do not use alcohol while using the pain medication. You may use acetaminophen or Tylenol for pain management, however, please ensure you are not using over 4000 mg or 4 grams of acetaminophen per day from all sources. Your pain medication has 325mg of acetaminophen per tablet. At this time, please do not use ibuprofen (Motrin, Advil) or naproxen (Aleve) for pain management as you are using the aspirin. When the aspirin course is completed in 5 weeks, you could use ibuprofen or naproxen for pain management (if this is allowed by your primary care provider) . Wear the KENDALL hose during the day and you may remove these at night. Elevate the limb to decrease swelling. Place ice to the area often. Place a towel between your skin and the blue pad. Use the incentive spirometer often. Take deep breaths throughout the day. Please keep the dressing in place until follow -up. Notify the Clinic if the dressing becomes saturated. Increase your protein intake while you are healing. Call the Clinic with questions or concerns - [phone]. - Discharge Plan *PRESCRIPTION DRUG MONITORING PROGRAM REVIEWED*: No *COPY OF PRESCRIPTION DRUG MONITORING REPORT IN PATIENT KERRY: No Prescriptions/Med Rec: Acetaminophen/HYDROcodone [[place] 325-5 MG] 1 - 2 tab PO Q4H PRN #60 tablet PRN Reason: Pain Aspirin [Ecotrin EC] 325 mg PO BID #70 tab.ec Cyclobenzaprine [Flexeril] 5 mg PO BID PRN #15 tablet PRN Reason: Spasms Home Medications: Home Meds Cholecalciferol (Vitamin D3) [Vitamin D3] 5,000 unit PO BEDTIME 12/25/18 [ History] Dorzolamide/Timolol [Cosopt 2%-0.5% Ophth Soln] 1 drop EYEBOTH BID 12/25/18 [ History] Latanoprost 1 drop EYEBOTH BEDTIME 12/25/18 [History] Levothyroxine 112 mcg PO DAILY 12/25/18 [History] Lutein/Zeaxanthin [Lutein-Zeaxanthin 25-5 mg Sfgl] 1 cap PO BEDTIME 12/25/18 [ History] Multivitamin [Daily Vanessa] 1 tab PO BEDTIME 12/25/18 [History] Omeprazole 40 mg PO BEDTIME 12/25/18 [History] Sertraline HCl [Zoloft] 100 mg PO BEDTIME 12/25/18 [History] Zolpidem [Ambien] 10 mg PO BEDTIME PRN 12/25/18 [History] Acetaminophen/HYDROcodone [[place] 325-5 MG] 1 - 2 tab PO Q4H PRN #60 tablet 12/29 [Rx] Aspirin [Ecotrin EC] 325 mg PO BID #70 tab.ec 12/29/18 [Rx] Bisacodyl [Dulcolax] 5 mg PO DAILY PRN #0 tablet 12/29/18 [Rx] Cyclobenzaprine [Flexeril] 5 mg PO BID PRN #15 tablet 12/29/18 [Rx] Docusate Sodium [Colace] 100 mg PO BID cap 12/29/18 [Rx] Famotidine [Pepcid] 20 mg PO Q12H tablet 12/29/18 [Rx] Magnesium Hydroxide [Milk of Magnesia] 30 ml PO BID PRN cup 12/29/18 [Rx] Sennosides [Senna] 8.6 mg PO BID PRN tablet 12/29/18 [Rx] Referrals: Shereen Hicks PA-C [Physician Drop Clipper] - (You have 3 follow ups scheduled as follows: 01/05/19 at 1:05pm with Dr. Becerra. 01/12/19 at 1:30pm with Shereen Hicks. 01/12/19 at 1:30pm with Shereen Hicks.) - Discharge Summary/Plan Comment DC Time >30 min.: No - Patient Data Vitals - Most Recent: Last Vital Signs Temp 98.1 F 12/29/18 12:13 Pulse 57 L 12/29/18 12:13 Resp 18 12/29/18 12:13 BP 106/49 L 12/29/18 12:13 Pulse Ox 94 L 12/29/18 12:13 Weight - Most Recent: 148 lb 6.4 oz Med Orders - Current: Current Medications Discontinued Medications Acetaminophen (Tylenol) 975 mg PO ONETIME [facility] Stop: 12/28/18 12:00 Acetaminophen (Tylenol) 975 mg PO ONETIME [facility] Stop: 12/28/18 13:00 Last Admin: 12/28/18 09:50 Dose: 975 mg Hydrocodone Bitart/Acetaminophen ([place] 325-5 Mg) 1 - 2 tab PO Q4H PRN PRN Reason: Pain Last Admin: 12/29/18 13:44 Dose: 2 tab Aspirin (Ecotrin) 325 mg PO BID [facility] Last Admin: 12/29/18 10:06 Dose: 325 mg Bisacodyl (Dulcolax) 5 mg PO DAILY PRN PRN Reason: Constipation Bupivacaine HCl (Sensorcaine-Mpf 0.25%) Confirm Administered Dose 30 ml .ROUTE .STK-MED ONE Stop: 12/28/18 09:57 Last Admin: 12/28/18 11:56 Dose: 30 ml Cefazolin Sodium (Ancef) Confirm Administered Dose 2 gm .ROUTE .STK-MED ONE Stop: 12/28/18 09:43 Last Admin: 12/28/18 11:52 Dose: 2 gm Cefazolin Sodium (Ancef) Confirm Administered Dose 2 gm .ROUTE .STK-MED ONE Stop: 12/28/18 09:56 Cholecalciferol (Vitamin D3) 5,000 unit PO BEDTIME [facility] Last Admin: 12/28/18 20:09 Dose: 5,000 unit Morphine Sulfate 8 mg/Epinephrine HCl 0.3 mg/Cefuroxime Sodium 750 mg/Ketorolac Tromethamine 30 mg/Sodium Chloride 27.9 ml 0 mg .XX ONETIME ONE Stop: 12/28/18 12:01 Last Admin: 12/28/18 13:36 Dose: Not Given Cyclobenzaprine HCl (Flexeril) 5 mg PO BID PRN PRN Reason: Spasms Last Admin: 12/28/18 22:11 Dose: 5 mg Dexamethasone (Dexamethasone) Confirm Administered Dose 20 mg .ROUTE .STK-MED ONE Stop: 12/28/18 09:43 Docusate Sodium (Colace) 100 mg PO BID [facility] Last Admin: 12/29/18 10:06 Dose: 100 mg Ephedrine Sulfate (Ephedrine In Ns) Confirm Administered Dose 25 mg .ROUTE .STK- MED ONE Stop: 12/28/18 11:13 Ephedrine Sulfate (Ephedrine Sulfate) 5 mg IVPUSH ASDIRECTED PRN PRN Reason: Hypotension Stop: 12/28/18 15:00 Famotidine (Pepcid) 20 mg PO Q12H [facility] Last Admin: 12/29/18 10:47 Dose: Not Given Famotidine (Pepcid) 20 mg PO BEDTIME [facility] Fentanyl (Sublimaze) Confirm Administered Dose 100 mcg .ROUTE .STK-MED ONE Stop: 12/28/18 09:42 Fentanyl (Sublimaze) 50 mcg IVPUSH Q5M PRN PRN Reason: Pain Stop: 12/28/18 13:00 Hydromorphone HCl (Dilaudid) 0.2 mg IVPUSH Q2H PRN PRN Reason: Pain (moderate 4-6) Last Admin: 12/28/18 22:01 Dose: 0.2 mg Hydromorphone HCl (Dilaudid) 0.5 mg IVPUSH Q10M PRN PRN Reason: Pain (severe 7-10) Stop: 12/28/18 13:00 Lactated Ringer's (Ringers, Lactated) 1,000 mls @ 125 mls/hr IV ASDIRECTED [facility] Stop: 12/28/18 23:00 Cefazolin Sodium/Dextrose 2 gm (/ Premix) 50 mls @ 100 mls/hr IV Q8H [facility] Stop: 12/29/18 10:29 Last Admin: 12/29/18 10:05 Dose: 100 mls/hr Lactated Ringer's (Ringers, Lactated) 1,000 mls @ 125 mls/hr IV ASDIRECTED [facility] Stop: 12/28/18 23:00 Last Admin: 12/28/18 09:43 Dose: 125 mls/hr Lidocaine HCl (Xylocaine-Mpf 1%) Confirm Administered Dose 4 mls @ as directed .ROUTE .STK-MED ONE Stop: 12/28/18 09:42 Iodine (Iodine 2% Mild Tincture) Confirm Administered Dose 30 ml .ROUTE .STK- MED ONE Stop: 12/28/18 09:56 Last Admin: 12/28/18 11:50 Dose: 18 ml Ketorolac Tromethamine (Toradol) 15 mg IVPUSH Q6H PRN PRN Reason: Pain Last Admin: 12/28/18 18:21 Dose: 15 mg Ketorolac Tromethamine (Toradol) Confirm Administered Dose 15 mg .ROUTE .STK- MED ONE Stop: 12/28/18 12:18 Levothyroxine Sodium (Levothyroxine) 112 mcg PO ACBREAKFAST [facility] Last Admin: 12/29/18 05:56 Dose: 112 mcg Lidocaine/Sodium Bicarbonate (Buffered Lidocaine 1% In Ns 8.4%) 0.25 ml IDERM ONETIME PRN PRN Reason: Prior to IV Start Stop: 12/28/18 18:00 Lidocaine/Sodium Bicarbonate (Buffered Lidocaine 1% In Ns 8.4%) 0.25 ml IDERM ONETIME PRN PRN Reason: Prior to IV Start Stop: 12/28/18 18:00 Last Admin: 12/28/18 09:43 Dose: 0.25 ml Magnesium Hydroxide (Milk Of Magnesia) 30 ml PO BID PRN PRN Reason: Constipation Midazolam HCl (Versed 1 Mg/Ml) Confirm Administered Dose 2 mg .ROUTE .STK-MED ONE Stop: 12/28/18 09:42 Miscellaneous Information (Remove Patch) 1 ea TRDERM ONETIME ONE Stop: 12/31/18 10:01 Multivitamins (Thera) 1 each PO BEDTIME [facility] Last Admin: 12/28/18 20:09 Dose: 1 each Naloxone HCl (Narcan) 0.1 mg IVPUSH Q5M PRN PRN Reason: Oversedation Ondansetron HCl (Zofran) 4 mg IVPUSH Q6H PRN PRN Reason: Nausea/Vomiting Ondansetron HCl (Zofran) Confirm Administered Dose 4 mg .ROUTE .STK-MED ONE Stop: 12/28/18 09:43 Ondansetron HCl (Zofran) 4 mg IVPUSH ONETIME PRN PRN Reason: Nausea/Vomiting Stop: 12/28/18 16:00 Oxycodone HCl (Oxycontin) 10 mg PO ONETIME [facility] Stop: 12/28/18 12:00 Oxycodone HCl (Oxycontin) 10 mg PO ONETIME [facility] Stop: 12/28/18 13:00 Last Admin: 12/28/18 09:50 Dose: 10 mg Oxycodone/Acetaminophen (Percocet 325-5 Mg) 1 - 2 tab PO Q4H PRN PRN Reason: Pain Dorzolamide/Timolol 2%-0.5% Ophth Soln * *Ptom 0 each EYEBOTH BID [facility] Last Admin: 12/29/18 10:06 Dose: 1 each Latanoprost 0.005% * (*Ptom) 0 each EYEBOTH BEDTIME [facility] Last Admin: 12/28/18 20:10 Dose: 1 each Pregabalin (Lyrica) 25 mg PO TID [facility] Pregabalin (Lyrica) 50 mg PO ONETIME [facility] Stop: 12/28/18 12:00 Pregabalin (Lyrica) 50 mg PO ONETIME [facility] Stop: 12/28/18 13:00 Last Admin: 12/28/18 09:50 Dose: 50 mg Propofol (Diprivan 20 Ml) Confirm Administered Dose 600 mg .ROUTE .STK-MED ONE Stop: 12/28/18 09:42 Scopolamine (Transderm-Scop) 1.5 mg TRDERM ONETIME [facility] Stop: 12/28/18 15:00 Last Admin: 12/28/18 09:40 Dose: 1.5 mg Senna (Senna) 8.6 mg PO BID PRN PRN Reason: Constipation Sertraline HCl (Zoloft) 100 mg PO BEDTIME [facility] Last Admin: 12/28/18 20:09 Dose: 100 mg Sodium Chloride (Saline Flush) 10 ml FLUSH ASDIRECTED PRN PRN Reason: Keep Vein Open Stop: 12/28/18 18:00 Tranexamic Acid (Cyklokapron) Confirm Administered Dose 1,000 mg .ROUTE .STK- MED ONE Stop: 12/28/18 09:56 Last Admin: 12/28/18 11:58 Dose: 1,000 mg Vancomycin HCl (Vancomycin) Confirm Administered Dose 1 gm .ROUTE .STK-MED ONE Stop: 12/28/18 09:56 Last Admin: 12/28/18 11:57 Dose: 1 gm Vit A/Vit C/Vit E/Selen/Cu/Zn/Lutei (Icaps Mv) 1 tab PO BEDTIME [facility] Last Admin: 12/28/18 20:09 Dose: 1 tab
--- NOTE | 2019-01-01 09:51 | PCM.OPNOTE ---
- General Post-Op/Procedure Note Date of Surgery/Procedure: 12/28/18 Operative Procedure(s): right total hip arthroplasty Pre Op Diagnosis: right hip osteoarthrosis Post-Op Diagnosis: Same Anesthesia Technique: Local, MAC, Spinal Primary Surgeon: Hernan Becerra Anesthesia Provider: Ольга Molina Paid Search Marketing Analyst: Shereen Hicks Paid Search Marketing Analyst: Kia Ortega EBMichel in mLs: 400 Complications: None Condition: Good Free Text/Narrative:: size 54 cup size 3 stem 36+0
--- NOTE | 2019-01-01 10:42 | OR ---
DATE OF OPERATION: 12/28/2018 SURGEON: Hernan Becerra MD OPERATIVE PROCEDURE: Right total hip arthroplasty. PREOPERATIVE DIAGNOSIS: Right hip osteoarthrosis. POSTOPERATIVE DIAGNOSIS: Right hip osteoarthrosis. ANESTHESIA TECHNIQUE: Local MAC with spinal. PRIMARY SURGEON: Dr. Hernan Becerra. ANESTHESIA PROVIDER: Miryam Mauro. RADIUS CORNER MACHINE OPERATOR: Shereen Hicks PA-C and Kia Ortega LPN. ESTIMATED BLOOD LOSS: 400 mL. COMPLICATIONS: None. CONDITION: Stable. IMPLANTS: 1. [place] size 54 mm solid Tritanium II acetabular cup. 2. Marvin size 3 Accolade II stem. 3. Marvin size 36, +0 Biolox femoral head. DESCRIPTION OF PROCEDURE: The patient was identified in the preoperative holding area. Proper site was marked and identified by the surgeon. The patient was taken back to the operating theater, where after adequate anesthesia, the patient was placed in the left lateral decubitus position. Axillary roll was placed. All bony prominences were well padded. At this time, Pegs were placed and well padded. The patient's gluteal fold was parallel to the floor. The right hip was then sterilely prepped and draped in the usual sterile fashion. OR time-out was performed. The patient received 2 g IV Ancef. At this time, a standard posterior incision was made, centered over the greater trochanter. This was taken down to the IT band and gluteal fascia, which was incised along the incisional length. Charnley retractor was then placed. Short external rotators were identified and takedown of the short external rotators as well as a capsulotomy was performed down to the level of the lesser trochanter. The hip was then dislocated. Neck cut was completed. Anterior and posterior acetabular retractors were placed. Removal of the labrum circumferentially was done as well as any pulvinar. Starting with a 48 reamer, I was able to ream up to a 52 at first which seemed like it had adequate purchase. Subsequently I had tried placing a 52 mm Tritanium II acetabular cup, but it did not have good enough fit. I reamed up to a 54 and then placed a 54 mm cup and had adequate fixation with no need for screws. At this time, the 36 mm flat liner was impacted in place and attention was turned to the femur starting with a box chisel, it was used out laterally. A starter awl was placed down the canal starting with the 0 broach, I was able to broach up to a size 3 which was found to be rotationally and vertically stable. A +0 on a 36 head was then trialed, it was found to be stable throughout range of motion with adequate scientologist of leg lengths. Trial parts were then removed. The size 3 Accolade II stem was impacted in to place along with a 36 +0 head and it was relocated. At this time, a #5 Ethibond suture was used for closure of short external rotators and capsule. A 1 L of dilute Betadine solution was irrigated through the hip along with 3 L pulse lavage irrigation with Ancef. Topical tranexamic acid and vancomycin powder were placed. A #2 barbed suture was used for closure of the IT band and gluteal fascia, 2-0 Vicryl was used subcutaneously, and Prineo was used for the skin. The patient tolerated the procedure well and was sent to the PACU in stable condition. OPERATION PERFORMED: ANESTHESIA: MMODAL /[id number]
== END 2018-12-29 14:35 | disposition home or self-care (01) | DRG 470 ==
LOC: JD.MS 08:55
PROVIDERS: ADMIT Orthopaedic Surgery; ATTEND Orthopaedic Surgery
PROC: 0SR903Z Replacement of Right Hip Joint with Ceramic Synthetic Substitute, Open Approach (ICD-10-PCS; principal; 2018-12-28)
DX: M16.11 Unilateral primary osteoarthritis, right hip (principal); F41.9 Anxiety disorder, unspecified; F31.9 Bipolar disorder, unspecified; K21.9 Gastro-esophageal reflux disease without esophagitis; M85.80 Other specified disorders of bone density and structure, unspecified site; E78.5 Hyperlipidemia, unspecified; E66.9 Obesity, unspecified; E03.9 Hypothyroidism, unspecified; Z98.49 Cataract extraction status, unspecified eye; Z79.890 Hormone replacement therapy; Z79.899 Other long term (current) drug therapy; Z88.5 Allergy status to narcotic agent; Z88.8 Allergy status to other drugs, medicaments and biological substances; Z68.29 Body mass index [BMI] 29.0-29.9, adult
CPT/HCPCS: 01214; 36415; 73501-26-RT; 73501-RT; 80053; 85027; 86850; 86900; 86901; 87641; 97110-GP; 97116-GP; 97161-GP; 97165-GO; 97535-GO; A9270-GY; C1776; J0171; J0690; J0697; J1100; J1170; J1885; J2001; J2250; J2270; J2405; J2704; J3010; J3370; J3490; J7050; J7120